=== PATIENT | female | born 1985 | race Caucasian/White ===

== ENCOUNTER 2018-07-16 14:17 | Emergency (ER) | payer MEDICAID ==
[~2018-07-16] VITALS: Ht 162.6 cm; Wt 64.8 kg
[~2018-07-16 14:17] MED LIST: CLON1TAB11 PO
[2018-07-16] MEDS ORDERED: ONDANSETRON ODT 4 MG ONE (18:38)
[2018-07-16] MEDS ORDERED: SODIUM CHLORIDE FLUSH 10ML SYR IVF ONE (19:00)
[2018-07-16] MEDS ORDERED: SODIUM CHLORIDE 0.9% 1,000ML IVBOLUS ONE (19:00)
[2018-07-16] MEDS ORDERED: ONDANSETRON ODT 4 MG PO ONE (19:00)
[2018-07-16] MEDS ORDERED: SODIUM CHLORIDE 0.9% 1,000 ML IV ONE (19:00)
[2018-07-16 19:46] VITALS: BP 106/72
== END 2018-07-16 20:47 | disposition home or self-care (01) ==
LOC: ED 20:41
DX: T40.1X2A Poisoning by heroin, intentional self-harm, initial encounter (principal); F11.20 Opioid dependence, uncomplicated; F41.9 Anxiety disorder, unspecified; Y92.89 Other specified places as the place of occurrence of the external cause
CPT/HCPCS: 93005; 99283; J7030; Q0162; 99285

== ENCOUNTER 2019-02-16 18:15 | Emergency (ER) | payer MEDICAID ==
[~2019-02-16] VITALS: Ht 162.6 cm; Wt 61.7 kg
[2019-02-16 18:17] VITALS: BP 138/90
== END 2019-02-16 18:51 | disposition left against medical advice (07) ==
LOC: ED 18:45
DX: Z00.00 Encounter for general adult medical examination without abnormal findings (principal)
CPT/HCPCS: 99281

== ENCOUNTER 2019-07-18 16:27 | Emergency (ER) | payer MEDICAID, OTHER ==
[~2019-07-18] VITALS: Ht 165.1 cm; Wt 64.0 kg
--- NOTE | 2019-07-18 16:39 | NUR ---
BIB [facility], FOUND ACTING ERATIC AT CIRCUS CIRCUS, PT ADMITS TO ETOH USE, DENIES DRUG USE. PT RESTRAINED UPON ARRIVAL WITH [facility], SECURITY AT BEDSIDE, PT APPEARS CALM AT THIS TIME, NO RESTRAINTS INITIATED. PT DID RECIEVE HALDOL/VERSED STYLIST ASSISTANT. PT STATES SHE WILL "BE NICE". VSS. NO EVIDENCE OF DISTRESS NOTED. ERMD IN TO EVAL PT, AWAITING ORDERS
[2019-07-18 17:17] LABS: ALBUMIN 4.1 g/dL (3.4-5.0); ANION GAP 8 mmol/L (5-15); CALCIUM 9.4 mg/dL (8.5-10.1); CHLORIDE 102 mmol/L (98-107); CREATININE 0.71 mg/dL (0.55-1.02)
[2019-07-18 17:18] LABS: SALICYLATE LEVEL < 1.7 mg/dL (2.8-20.0)
--- NOTE | 2019-07-18 17:50 | NUR ---
PT REMAINS CALM, RESTING ON GURNEY WITH VISIBLE CHEST RISE AND FALL. SITTER IN PLACE FOR SAFETY. DINNER TRAY ORDERED FOR PT
--- NOTE | 2019-07-18 19:06 | NUR ---
PT RESTING ON GURNEY WITH EYES CLOSED NADN, RESPIRATIONS EVEN AND UNLABORED, CALL LIGHT WITHIN REACH. WILL CONTINUE TO MONITOR
--- NOTE | 2019-07-18 20:40 | NUR ---
PT AMBULATED TO WITH STANDBY ASSIST, TOLERATED TRANSFER WITHOUT DIFFICULTY. PROVIDED PT WITH DRINK AND SNACK PER HER REQUEST, MONITORS IN PLACE, CALL LIGHT WITHIN REACH. AWAITING URINE RESULT, WILL UPDATE ERP ON PT STATUS
[2019-07-18 20:41] VITALS: BP 106/50
--- NOTE | 2019-07-18 20:41 | NUR ---
URINE SAMPLE SENT
[2019-07-18 21:01] LABS: AMPHETAMINE SCREEN, URINE Positive (Negative); BARBITURATE SCREEN, URINE Negative (Negative); BENZODIAZEPINE SCREEN, URINE Positive (Negative); CANNABINOID SCREEN, URINE Positive (Negative); COCAINE SCREEN, URINE Negative (Negative); METHADONE SCREEN, URINE Negative (Negative); OPIATE SCREEN, URINE Negative (Negative)
--- NOTE | 2019-07-18 21:10 | NUR ---
DISCUSSED PT STATUS PT AWAKE AND ABLE TO ANSWER QUESTIONS, PT AMBULATED TO WITH STEADY GAIT, URINE RESULTS, ERP TO REVIEW PT'S CHART.
--- NOTE | 2019-07-18 21:35 | NUR ---
PROVIDED PT WITH PERSONAL BELONGINGS AND DISCUSSED D/C WITH HER. PT REFUSING TO GET UP AND GET DRESSED, PT ROLLED OVER PULLED BLANKET OVER HER HEAD
--- NOTE | 2019-07-18 22:03 | NUR ---
PT REFUSING TO GET UP AND GET DRESSED FOR D/C, SECURITY CALLED AND AT BEDSIDE FOR ASSIST WITH PT D/C
== END 2019-07-18 22:08 | disposition home or self-care (01) ==
LOC: ED 22:00
DX: F15.159 Other stimulant abuse with stimulant-induced psychotic disorder, unspecified (principal); F17.200 Nicotine dependence, unspecified, uncomplicated; F41.9 Anxiety disorder, unspecified
CPT/HCPCS: 36415; 80048; 80307; 82040; 84703; 99284

== ENCOUNTER 2019-07-23 13:33 | Emergency (ER) | payer MEDICAID ==
[~2019-07-23] VITALS: Ht 162.6 cm; Wt 56.0 kg
[2019-07-23 13:36] VITALS: BP 138/95
--- NOTE | 2019-07-23 13:55 | NUR ---
PT BIB [facility], PT FOUND OUTSIDE OF [facility] 8 MUMBLING AND SPEAKING INAPPROPRIATELY, PT ORIENTED TO SELF ONLY. ON ASSESSMENT PT SPEAKING INCOHERENTLY, REPEATING ANY QUESTIONS ASKED BY STAFF. UNABLE TO ASSESS PT APPROPRIATELY. PT WITH HX OF METH ABUSE. Addendum: [facility]23[facility] 14[facility]OV[facility] FROM AND PLACED OUTSIDE OF , PT NOT A LEGAL HOLD AT THIS TIME, ALTHOUGH DISPO UNCLEAR. SECURED FOR SAFETY
[2019-07-23] MEDS ORDERED: CEFAZOLIN 1,000 MG IM ONE (14:00)
[2019-07-23] MEDS ORDERED: CEFAZOLIN 1,000 MG ONE (14:32)
[2019-07-23] MEDS ORDERED: LIDOCAINE-MPF 1%, 2ML ONE (14:32)
[2019-07-23 14:34] LABS: MEAN CORPUSCULAR HEMOGLOBIN 28.2 pg (27.0-34.8); MEAN CORPUSCULAR HGB CONC 33.1 g/dL (32.4-35.8); MEAN CORPUSCULAR VOLUME 85.3 fL (80-100); MEAN PLATELET VOLUME 7.4 fL (7.4-10.4); PLATELET COUNT 327 x10^3/uL (130-400); RED CELL DISTRIBUTION WIDTH 14.6 % (9.6-15.2)
[2019-07-23] MEDS ORDERED: HALOPERIDOL 5 MG/ML ONE (14:36)
--- NOTE | 2019-07-23 14:44 | NUR ---
PT MEDICATED PER OCT, ADDITIONAL ORDER FOR HALDOL RECIEVED. PT YELLING IN RM INAPPROPRIATE WORDS, RESTLESS.
[2019-07-23 14:45] LABS: SALICYLATE LEVEL < 1.7 mg/dL (2.8-20.0)
[2019-07-23] MEDS ORDERED: HALOPERIDOL 5 MG/ML IM ONE (15:00)
--- NOTE | 2019-07-23 15:17 | NUR ---
PT GIVEN URINE CUP AND THIS RN ATTEMPTING TO ASSIST PT TO BR TO COLLECT SAMPLE, PT REFUSED TO WALK AND INSISTED ON URINATING WHILE IN GURNEY INTO THE SPECIMEN CUP, PT SPILLED URINE ON GURNEY AND SHEET, PT REFUSED TO ALLOW THIS RN TO ASSIST IN CLEANING PT UP, PT REFUSED REASSESSMENT OF VS
[2019-07-23 15:22] LABS: ANION GAP 8 mmol/L (5-15); CALCIUM 9.3 mg/dL (8.5-10.1); CHLORIDE 100 mmol/L (98-107)
[2019-07-23 15:23] LABS: CREATININE 0.67 mg/dL (0.55-1.02)
[2019-07-23 15:40] LABS: BASOPHILS # (AUTO) 0.06 x10^3/uL (0-0.1); BASOPHILS % (AUTO) 0 % (0-1); EOSINOPHILS # (AUTO) 0.02 x10^3/uL (0-0.4); EOSINOPHILS % (AUTO) 0 % (1-7); LYMPHOCYTES # (AUTO) 1.48 x10^3/uL (1-3.4); LYMPHOCYTES % (AUTO) 8 % (22-44); MD SCAN; MONOCYTES # (AUTO) 0.98 x10^3/uL (0.2-0.8); MONOCYTES % (AUTO) 6 % (2-9); NEUTROPHILS # (AUTO) 15.06 x10^3/uL (1.8-6.8); NEUTROPHILS % (AUTO) 86 % (42-75)
[2019-07-23 15:47] LABS: AMPHETAMINE SCREEN, URINE Positive (Negative); BARBITURATE SCREEN, URINE Negative (Negative); BENZODIAZEPINE SCREEN, URINE Negative (Negative); METHADONE SCREEN, URINE Negative (Negative); OPIATE SCREEN, URINE Negative (Negative)
[2019-07-23 15:49] LABS: CANNABINOID SCREEN, URINE Negative (Negative); COCAINE SCREEN, URINE Negative (Negative)
--- NOTE | 2019-07-23 16:18 | NUR ---
PT SLEEPING NOW ON GURNEY, VISIBLE CHEST RISE AND FALL NOTED, NAD AT THIS TIME
--- NOTE | 2019-07-23 17:09 | NUR ---
WOUND CARE PROVIDER TO PTS L LATERAL FOOT. PT ABLE TO DRESS SELF AND WALK WITHOUT DIFFICULTY. PT STATES UNDERSTANDING OF DISCHARGE INSTRUCTIONS. ALL PT BELONGINGS RETURNED TO PT.
--- NOTE | 2019-07-23 17:15 | NUR ---
PT REQUIRING ESCORT OFF PREMISES VIA SECURITY.
== END 2019-07-23 17:23 | disposition home or self-care (01) ==
LOC: ED 17:10
DX: F15.259 Other stimulant dependence with stimulant-induced psychotic disorder, unspecified (principal); L03.116 Cellulitis of left lower limb; R00.0 Tachycardia, unspecified; F41.1 Generalized anxiety disorder; G92 Toxic encephalopathy; Z79.899 Other long term (current) drug therapy
CPT/HCPCS: 36415; 73630; 80048; 80307; 85025; 93005; 96372; 99284; J0690; J1630